=== PATIENT | male | born 1985 | race Caucasian/White ===

== ENCOUNTER 2017-07-13 09:14 | Observation (INO) | payer OTHER ==
[~2017-07-13] VITALS: Ht 182.9 cm; Wt 103.0 kg
[2017-07-13] VITALS (11 sets, daily range): BP systolic 111–137; BP diastolic 61–82; PULSE 56–90; RESP 14–20; Ht 182.9 cm; Wt 103.0 kg
[2017-07-13] MEDS ORDERED: APIX5TAB PO (10:00)
--- NOTE | 2017-07-13 10:43 | RADRPT ---
PROCEDURE: XR Chest. CLINICAL INDICATION: Preop TECHNIQUE: Single AP portable chest. COMPARISON: No prior Chest x-ray FINDINGS: The cardiomediastinal silhouette is within normal limits of size. The lungs are clear without pleur al effusion or focal consolidation. No pneumothorax. The osseous structures and soft tissues are unr emarkable. IMPRESSION: 1. No evidence for active cardiopulmonary disease. RPTAT:AAJJ Physician King Date Time Electronically viewed and signed by Physician King on 07/13/2017 10:43 [place]/
[2017-07-13] MEDS ORDERED: LIDOCAINE 1% (MPF) 30 ML INJ ONE (10:46)
[2017-07-13] MEDS ORDERED: FENTAnyl 50 MCG/ML VIAL ONE ×2 (10:56→11:03)
[2017-07-13] MEDS ORDERED: EPHEDrine SULFATE 50 MG/5 ML SYG IV PRN (11:00)
[2017-07-13] MEDS ORDERED: morphine (1 MG/ML) 10ML SYRINGE IV PRN ×3 (11:00)
[2017-07-13] MEDS ORDERED: OXYCODONE/ACETAMINOPHEN (5/325) TAB PO PRN ×2 (11:00)
[2017-07-13] MEDS ORDERED: FENTAnyl 50 MCG/ML VIAL IV PRN ×2 (11:00)
[2017-07-13] MEDS ORDERED: ONDANSETRON 4 MG INJ IV PRN ×2 (11:00→18:00)
[2017-07-13] MEDS ORDERED: MEPERIDINE 25 MG INJ IV PRN (11:00)
[2017-07-13] MEDS ORDERED: KETOROLAC 30 MG INJ IV PRN (11:00)
[2017-07-13] MEDS ORDERED: hydrALAzine 20 MG INJ IV PRN (11:00)
[2017-07-13] MEDS ORDERED: DIPHENHYDRAMINE 50 MG INJ IV PRN (11:00)
[2017-07-13] MEDS ORDERED: LABETALOL HCL 20MG INJ IV PRN (11:00)
[2017-07-13] MEDS ORDERED: LIDOCAINE 2% (SDV) 5 ML INJ ONE (11:02)
[2017-07-13] MEDS ORDERED: PROPOFOL 20 ML ONE (11:02)
[2017-07-13] MEDS ORDERED: CEFAZOLIN 1 GM INJ ONE (11:03)
--- NOTE | 2017-07-13 12:18 | OPR ---
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
[2017-07-13] MEDS: FENTAnyl 50 MCG/ML VIAL IV PRN ×2 (12:32→12:54)
[2017-07-13] MEDS ORDERED: HYDROCODONE/APAP (5/325) TAB PO PRN ×2 (13:30→18:00)
[2017-07-13] MEDS ORDERED: HYDROmorphONE 1 MG/ML SYG IV PRN (13:30)
[2017-07-13] MEDS ORDERED: IBUPROFEN 600 MG TAB PO PRN (13:30)
--- NOTE | 2017-07-13 16:11 | PN ---
Date/Time of Note Date/Time of Note DATE: 07/13/17 TIME: 16:09 Assessment/Plan VTE Prophylaxis VTE Prophylaxis Intervention: LMWH Lines/Catheters IV Catheter Type (from Nrs): Saline Lock Assessment/Plan Chief Complaint/Hosp Course 1. Thrombophlebitis RLE 2. Overweight 3. Varicose veins lower extremities Problems: Assessment/Plan 1. Start vancomycin IV 2. Keep wound wrapped 3. Pain control Subjective 24 Hr Interval Summary Constitutional: improved, no complaints Exam/Review of Systems Vital Signs Vitals Vital Signs Date Time Temp Pulse Resp B/P Pulse Ox O2 Delivery O2 Flow Rate FiO2 07/13/17 13:47 97.6 66 20 113/61 97 07/13/17 12:47 Nasal Cannula 2.0 Exam Constitutional: oriented Musculoskeletal: swelling (right leg) Medications Medications Current Medications Hydromorphone HCl (Dilaudid) 0.5 mg Q6H PRN IV PAIN LEVEL 6-10; Start 07/13/17 at 13:30 Acetaminophen/ Hydrocodone Bitart ([place] (5/325)) 1 tab Q6H PRN PO PAIN LEVEL 6 -10; Start 07/13/17 at 13:30 Ibuprofen (Motrin) 600 mg Q6H PRN PO PAIN LEVEL 1-5; Start 07/13/17 at 13:30 Enoxaparin Sodium (Lovenox) 30 mg DAILY@07 SC ; Start 07/14/17 at 07:00 ANNIKA LEWIS Jul 13, 2017 16:11
[2017-07-13] MEDS ORDERED: VANCOMYCIN 1 GM (PMX) 250 ML IVPB SCH (16:30)
[2017-07-13] MEDS ORDERED: VANCOMYCIN IV PER PHARMACY XX SCH (16:30)
[2017-07-13] MEDS ORDERED: NACL 0.9% 3 ML SYG IV SCH (18:00)
[2017-07-13] MEDS ORDERED: MAGNESIUM HYDROXIDE 30ML CUP PO PRN (18:00)
[2017-07-13] MEDS ORDERED: BISACODYL (EC) 5 MG TAB PO PRN (18:00)
[2017-07-13] MEDS ORDERED: ZOLPIDEM 5 MG TAB PO PRN (18:00)
[2017-07-13] MEDS ORDERED: ACETAMINOPHEN 325 MG TAB PO PRN (18:00)
[2017-07-13] MEDS ORDERED: DOCUSATE SODIUM 100 MG CAP PO PRN (18:00)
[2017-07-13] MEDS ORDERED: morphine 2 MG INJ IV PRN (18:00)
--- NOTE | 2017-07-13 18:04 | QN ---
Documentation Comment [id number] DACIA BLEVINS MD Jul 13, 2017 18:04
[2017-07-13 19:07] LABS: CALCIUM 8.9 mg/dl (8.4-10.2); CREATININE 0.92 mg/dl (0.61-1.24)
[2017-07-13] MEDS: SOD CHLORIDE 0.9% 1,000 ML IV SCH (19:48)
[2017-07-13] MEDS ORDERED: CEFTRIAXONE 1 GM/50 ML (PMX) 50 ML IVPB SCH (20:00)
[2017-07-13] MEDS: VANCOMYCIN 1.5 GM in SOD CHLORIDE 0.9% 250 ML IVPB SCH (22:21)
[2017-07-14 02:00] VITALS: BP 110/69; RESP 20
[2017-07-14] MEDS: VANCOMYCIN 1.5 GM in SOD CHLORIDE 0.9% 250 ML IVPB SCH ×2 (05:06→12:08)
[2017-07-14 05:52] LABS: BASOPHILS % 0.4 % (0.0-2.0); EOSINOPHILS # 0.1 10^3/ul (0.0-0.5); HEMATOCRIT 35.2 % (42.0-52.0); HEMOGLOBIN 11.4 g/dl (14.0-18.0); LYMPHOCYTES # 1.8 10^3/ul (0.8-2.9); LYMPHOCYTES % 26.1 % (15.0-51.0); MEAN CORPUSCULAR HEMOGLOBIN 28.6 pg (29.0-33.0); MEAN CORPUSCULAR HGB CONC 32.4 g/dl (32.0-37.0); MEAN CORPUSCULAR VOLUME 88.2 fl (82.0-101.0); MEAN PLATELET VOLUME 10.8 fl (7.4-10.4); MONOCYTE # 0.5 10^3/ul (0.3-0.9); MONOCYTES % 6.9 % (0.0-11.0); NEUTROPHIL # 4.4 10^3/ul (1.6-7.5); PLATELET COUNT 196 10^3/UL (140-415); RED BLOOD COUNT 3.99 10^6/ul (4.70-6.10); RED CELL DISTRIBUTION WIDTH 13.9 % (11.5-14.5); WHITE BLOOD COUNT 6.9 10^3/ul (4.8-10.8)
[2017-07-14] MEDS ORDERED: PANTOPRAZOLE 40 MG INJ IV SCH (06:00)
[2017-07-14 06:13] LABS: CALCIUM 8.4 mg/dl (8.4-10.2); CREATININE 0.94 mg/dl (0.61-1.24); POTASSIUM 4.2 mmol/L (3.5-5.1)
[2017-07-14] MEDS ORDERED: ENOXAPARIN 30 MG/0.3 ML SYG SC SCH (07:00)
[2017-07-14 07:27] VITALS: BP 113/64; RESP 18
[2017-07-14] MEDS ORDERED: ENOXAPARIN 40 MG/0.4 ML SYG SC SCH (09:00)
--- NOTE | 2017-07-14 09:00 | OPR ---
DATE OF OPERATION: PREOPERATIVE DIAGNOSIS: Thrombophlebitis right lower extremity. POSTOPERATIVE DIAGNOSIS: Thrombophlebitis right lower extremity. OPERATION PERFORMED: Phlebectomy right lower extremity. SURGEON: Holly Maya MD. ANESTHESIA: General. CONSENT: Risks, benefits, complications, alternative therapies explained to the patient and the [facility] brenda, consent obtained. OPERATIVE TECHNIQUE: The patient was taken the operating room. After induction of general anesthes ia, prepped and draped in usual sterile fashion, I made three 4 cm incisions, 2 in the lateral aspec t of the right leg and one in the anterolateral aspect of the right thigh. The varicosities appeare d to be very large, about 3 cm in diameter and thrombosed. It was very adherent to the subcutaneous tissue. It was released with Metzenbaum scissors. Most of the varicosities which were thrombosed w ere removed. The rest of the vein was decompressed by suctioning the clot out of the vein. All 3 wounds were then irrigated using antibiotic solution and closed in 2 layers of 2-0 Vicryl suture for subcutaneous, and virgil for the skin. Patient tolerated procedure well. Patient will be admitte d for IV antibiotics. Dictated By: HOLLY WHARTON/ZOILA Conf#: [id number] DID#: [id number]
[2017-07-14] MEDS: SOD CHLORIDE 0.9% 1,000 ML IV SCH (10:21)
--- NOTE | 2017-07-14 12:57 | PN ---
Date/Time of Note Date/Time of Note DATE: 07/14/17 TIME: 12:56 Assessment/Plan VTE Prophylaxis VTE Prophylaxis Intervention: other Lines/Catheters IV Catheter Type (from Nrsg): Intraosseous Central line still needed: No Urinary Cath still in place: No Assessment/Plan Chief Complaint/Hosp Course SP Phlebectomy will continue abx Problems: Subjective 24 Hr Interval Summary Cardiovascular: no complaints Gastrointestinal: no complaints Genitourinary: no complaints Musculoskeletal: no complaints Exam/Review of Systems Vital Signs Vitals Vital Signs Date Time Temp Pulse Resp B/P Pulse Ox O2 Delivery O2 Flow Rate FiO2 07/14/17 07:27 98.3 63 18 113/64 94 07/13/17 14:30 Room Air 07/13/17 12:47 2.0 Intake and Output 07/13/17 07/13/17 07/14/17 15:00 23:00 07:00 Intake Total 700 ml 420 ml 800 ml Output Total 10 ml Balance 690 ml 420 ml 800 ml Results Result Diagram: 07/14/1728 07/14/1728 Results 24 hrs Laboratory Tests Test 07/13/17 18:36 07/14/17 05:28 Sodium Level 140 141 Potassium Level 4.0 4.2 Chloride Level 107 109 Carbon Dioxide Level 31 26 Anion Gap 6 L 10 Blood Urea Nitrogen 12 11 Creatinine 0.92 0.94 Glucose Level 81 92 Calcium Level 8.9 8.4 White Blood Count 6.9 Red Blood Count 3.99 L Hemoglobin 11.4 L Hematocrit 35.2 L Mean Corpuscular Volume 88.2 Mean Corpuscular Hemoglobin 28.6 L Mean Corpuscular Hemoglobin Concent 32.4 Red Cell Distribution Width 13.9 Platelet Count 196 Mean Platelet Volume 10.8 H Neutrophils % 64.0 Lymphocytes % 26.1 Monocytes % 6.9 Eosinophils % 2.0 Basophils % 0.4 Nucleated Red Blood Cells % 0.0 Neutrophils # 4.4 Lymphocytes # 1.8 Monocytes # 0.5 Eosinophils # 0.1 Basophils # 0.0 Nucleated Red Blood Cells # 0.0 Medications Medications Current Medications Hydromorphone HCl (Dilaudid) 0.5 mg Q6H PRN IV PAIN LEVEL 6-10 Last administered on 07/14/17t 12:08; Admin Dose 0.5 MG; Start 07/13/17 at 13:30 Acetaminophen/ Hydrocodone Bitart ([place] (5/325)) 1 tab Q6H PRN PO PAIN LEVEL 6 -10 Last administered on 07/13/17 21:59; Admin Dose 1 TAB; Start 07/13/17 at 13 :30 Ibuprofen 600 mg 600 mg Q6H PRN PO PAIN LEVEL 1-5; Start 07/13/17 at 13:30 Sodium Chloride (NS) 1,000 ml @ 60 mls/hr [id number] IV Last administered on 07/13 19:48; Admin Dose 60 MLS/HR; Start 07/13/17 at 17:41 Ondansetron HCl (Zofran Inj) 4 mg Q6H PRN IV NAUSEA AND/OR VOMITING; Start 07/13/17 at 18:00 Acetaminophen (Tylenol Tab) 650 mg Q6H PRN PO PAIN LEVEL 1-3 OR FEVER; Start 07/13/17 at 18:00 Acetaminophen/ Hydrocodone Bitart ([place] (5/325)) 1 tab Q6H PRN PO MODERATE PAIN LEVEL 4-6; Start 07/13/17 at 18:00 Morphine Sulfate (morphine) 2 mg Q4H PRN IV SEVERE PAIN LEVEL 7-10; Start 07/13 at 18:00 Docusate Sodium (Colace) 100 mg Q12H PRN PO CONSTIPATION; Start 07/13/17 at 18: 00 Magnesium Hydroxide (Milk Of Mag) 30 ml DAILY PRN PO CONSTIPATION; Start at 18:00 Bisacodyl (Dulcolax) 5 mg DAILY PRN PO CONSTIPATION; Start 07/13/17 at 18:00 Zolpidem Tartrate (Ambien) 5 mg QHS PRN PO SLEEP; Start 07/13/17 at 18:00 Pantoprazole (Protonix Iv) 40 mg DAILY@06 IV Last administered on 07/14/17 05: 11; Admin Dose 40 MG; Start 07/14/17 at 06:00 Enoxaparin Sodium 40 mg 40 mg DAILY SC Last administered on 07/14/17 08:45; Admin Dose 40 MG; Start 07/14/17 at 09:00 Ceftriaxone Sodium 50 ml @ 100 mls/hr Q24H IVPB Last administered on 19:49; Admin Dose 100 MLS/HR; Start 07/13/17 at 20:00 Vancomycin HCl/ Sodium Chloride (Vancocin/NS) 250 ml @ 83.333 mls/ hr Q8H IVPB Last administered on 07/14/17t 12:08; Admin Dose 83.333 MLS/HR; Start at 21:00 Miscellaneous Information (*Rx Drug Level Order Reminder*) VANCOMYCIN TROUGH AT 2000 ONCE ONCE XX ; Start 07/14/17 at 20:00; Stop 07/14/17 at 20:01 HOLLY LEMOS MD Jul 14, 2017 12:57
[2017-07-14 14:16] VITALS: BP_SYST 131; BP_SYST 155; BP_DIAS 76; BP_DIAS 93; RESP 18
--- NOTE | 2017-07-14 14:40 | PN ---
Date/Time of Note Date/Time of Note DATE: 07/14/17 TIME: 14:36 Assessment/Plan VTE Prophylaxis VTE Prophylaxis Intervention: ambulation Lines/Catheters IV [facility] Type [facility]from [facility]): Intraosseous Central line still needed: No Urinary Cath still in place: No Assessment/Plan Chief Complaint/Hosp Course 1. Thrombophlebitis RLE S/p thrombectomy. 2. Overweight 3. Varicose veins lower extremities Problems: Assessment/Plan 1. Discharge pending Subjective 24 Hr Interval Summary Constitutional: improved, no complaints Exam/Review of Systems Vital Signs Vitals Vital Signs Date Time Temp Pulse Resp B/P Pulse Ox O2 Delivery O2 Flow Rate FiO2 07/14/17 14:16 97.9 64 18 131/76 98 07/13/17 14:30 Room Air 07/13/17 12:47 2.0 Intake and Output 07/13/17 07/13/17 07/14/17 15:00 23:00 07:00 Intake Total 700 ml 420 ml 800 ml Output Total 10 ml Balance 690 ml 420 ml 800 ml Exam Constitutional: alert, oriented Eyes: nl conjunctiva Respiratory: clear to auscultation Cardiovascular: regular rate and rhythm Musculoskeletal: swelling (left leg) Results Result Diagram: 07/14/1728 07/14/1728 Results 24 hrs Laboratory Tests Test 07/13/17 18:36 07/14/17 05:28 Sodium Level 140 141 Potassium Level 4.0 4.2 Chloride Level 107 109 Carbon Dioxide Level 31 26 Anion Gap 6 L 10 Blood Urea Nitrogen 12 11 Creatinine 0.92 0.94 Glucose Level 81 92 Calcium Level 8.9 8.4 White Blood Count 6.9 Red Blood Count 3.99 L Hemoglobin 11.4 L Hematocrit 35.2 L Mean Corpuscular Volume 88.2 Mean Corpuscular Hemoglobin 28.6 L Mean Corpuscular Hemoglobin Concent 32.4 Red Cell Distribution Width 13.9 Platelet Count 196 Mean Platelet Volume 10.8 H Neutrophils % 64.0 Lymphocytes % 26.1 Monocytes % 6.9 Eosinophils % 2.0 Basophils % 0.4 Nucleated Red Blood Cells % 0.0 Neutrophils # 4.4 Lymphocytes # 1.8 Monocytes # 0.5 Eosinophils # 0.1 Basophils # 0.0 Nucleated Red Blood Cells # 0.0 Medications Medications Current Medications Hydromorphone HCl (Dilaudid) 0.5 mg Q6H PRN IV PAIN LEVEL 6-10 Last administered on 07/14/17 12:08; Admin Dose 0.5 MG; Start 07/13/17 at 13:30 Acetaminophen/ Hydrocodone Bitart ([place] (5/325)) 1 tab Q6H PRN PO PAIN LEVEL 6 -10 Last administered on 07/13/17 21:59; Admin Dose 1 TAB; Start 07/13/17 at 13 :30 Ibuprofen 600 mg 600 mg Q6H PRN PO PAIN LEVEL 1-5; Start 07/13/17 at 13:30 Sodium Chloride (NS) 1,000 ml @ 60 mls/hr [id number] IV Last administered on 07/13 19:48; Admin Dose 60 MLS/HR; Start 07/13/17 at 17:41 Ondansetron HCl (Zofran Inj) 4 mg Q6H PRN IV NAUSEA AND/OR VOMITING; Start 07/13/17 at 18:00 Acetaminophen (Tylenol Tab) 650 mg Q6H PRN PO PAIN LEVEL 1-3 OR FEVER; Start 07/13/17 at 18:00 Acetaminophen/ Hydrocodone Bitart ([place] (5/325)) 1 tab Q6H PRN PO MODERATE PAIN LEVEL 4-6; Start 07/13/17 at 18:00 Morphine Sulfate (morphine) 2 mg Q4H PRN IV SEVERE PAIN LEVEL 7-10; Start 07/13 at 18:00 Docusate Sodium (Colace) 100 mg Q12H PRN PO CONSTIPATION; Start 07/13/17 at 18: 00 Magnesium Hydroxide (Milk Of Mag) 30 ml DAILY PRN PO CONSTIPATION; Start at 18:00 Bisacodyl (Dulcolax) 5 mg DAILY PRN PO CONSTIPATION; Start 07/13/17 at 18:00 Zolpidem Tartrate (Ambien) 5 mg QHS PRN PO SLEEP; Start 07/13/17 at 18:00 Pantoprazole (Protonix Iv) 40 mg DAILY@06 IV Last administered on 07/14/17 05: 11; Admin Dose 40 MG; Start 07/14/17 at 06:00 Enoxaparin Sodium 40 mg 40 mg DAILY SC Last administered on 07/14/17 08:45; Admin Dose 40 MG; Start 07/14/17 at 09:00 Ceftriaxone Sodium 50 ml @ 100 mls/hr Q24H IVPB Last administered on 19:49; Admin Dose 100 MLS/HR; Start 07/13/17 at 20:00 Vancomycin HCl/ Sodium Chloride (Vancocin/NS) 250 ml @ 83.333 mls/ hr Q8H IVPB Last administered on 07/14/17 12:08; Admin Dose 83.333 MLS/HR; Start at 21:00 Miscellaneous Information (*Rx Drug Level Order Reminder*) VANCOMYCIN TROUGH AT 1999 ONCE ONCE XX ; Start 07/14/17 at 20:00; Stop 07/14/17 at 20:01 ANNIKA LEWIS Jul 14, 2017 14:40
--- NOTE | 2017-07-14 15:00 | PDOCDIS ---
Discharge Instructions DIAGNOSIS Discharge Diagnosis Thrombectomy right vena saphena CONDITION Patient Condition: Good HOME CARE INSTRUCTIONS: Diet Instructions: RegularSpecial Diet: REGULAR DIET ACTIVITY: Activity Restrictions: Slowly Increase Activity Bathing Restrictions: Sponge Bath FOLLOW UP/APPOINTMENTS Follow-up Plan Dr Maya 1 week SCHOOL/WORK RELEASE May return to School/Work with: With Restrictions (1 week off) ANNIKA LEWIS Jul 14, 2017 15:00
[2017-07-14] MEDS ORDERED: CEPH500C PO (15:01)
[2017-07-14] MEDS ORDERED: IBUP-1542 PO (15:01)
[2017-07-14] MEDS ORDERED: HYDR-3498 PO (15:11)
--- NOTE | 2017-07-15 18:12 | HP ---
DATE OF ADMISSION: 07/13/2017 HISTORY OF PRESENT ILLNESS: The patient is a 32-year-old male who has a history of varicose veins. The patient has a history of pilonidal abscess status post I and D in the past. Now, patient prese nted with right lower extremity saphenous vein surgery due to thrombophlebitis. The patient has his tory of leg infections in the past. PAST MEDICAL HISTORY: Negative. ALLERGY HISTORY: NEGATIVE. FAMILY HISTORY: Noncontributory. SOCIAL HISTORY: Negative. MEDICATIONS AT HOME: Apixaban. REVIEW OF SYSTEMS: HEENT: Unremarkable. RESPIRATORY: Unremarkable. CARDIOVASCULAR: Unremarkable. ABDOMEN: Unremarkable. EXTREMITIES: Leg pain. CENTRAL NERVOUS SYSTEM: Unremarkable. PHYSICAL EXAMINATION: GENERAL: The patient is awake, alert. VITAL SIGNS: Pulse 66, blood pressure 137/79. HEAD: Atraumatic, normocephalic. Pupils equal, reactive to light. NECK: Supple. No JVD. LUNGS: Clear. CARDIOVASCULAR: S1, S2 normal. ABDOMEN: Soft and nontender. Bowel sounds positive. No palpable mass. EXTREMITIES: Right leg dressing noted. LABORATORY DATA: Not available. IMPRESSION: 1. Right leg various veins, status post surgery. 2. Thrombophlebitis. 3. History of right leg infection. PLAN: Continue IV fluids, empiric antibiotics and DVT prophylaxis. Pain medication orders were don e. Dictated By: DACIA TIERNEY/ZOILA Conf#: [id number] DID#: [id number]
--- NOTE | 2017-07-17 07:51 | DS ---
Date/Time of Note Date/Time of Note DATE: 07/17/17 TIME: 07:39 Discharge Summary Admission/Discharge Info Admit Date/Time Jul 13, 2017 at 13:00 Discharge Date/Time Jul 14, 2017 at 15:40 Discharge Diagnosis 1. Right leg various veins, status post surgery. 2. Thrombophlebitis. 3. History of right leg infection. 4. Overweight Patient Condition: Stable Consults DR Maya Procedures Thrombectomy right vena saphena Hospital Course The patient is a 32-year-old male who has a history of varicose veins. The patient has a history of pilonidal abscess status post I and D in the past. Now , patient presented with right lower extremity saphenous vein surgery by dr Maya due to thrombophlebitis. The patient has history of leg infections in the past. The surgery was performed on 07/13/2017 and was successful. Postoperative period is unremarkable. Pt was continue with IV and antibiotic therapy, was tolerating jelena well, pain was controlled. REVIEW OF SYSTEMS: HEENT: Unremarkable. RESPIRATORY: Unremarkable. CARDIOVASCULAR: Unremarkable. ABDOMEN: Unremarkable. EXTREMITIES: Leg pain. CENTRAL NERVOUS SYSTEM: Unremarkable. PHYSICAL EXAMINATION: GENERAL: The patient is awake, alert. VITAL SIGNS: Pulse 66, blood pressure 137/79. HEAD: Atraumatic, normocephalic. Pupils equal, reactive to light. NECK: Supple. No JVD. LUNGS: Clear. CARDIOVASCULAR: S1, S2 normal. ABDOMEN: Soft and nontender. Bowel sounds positive. No palpable mass. EXTREMITIES: Right leg dressing noted. IMPRESSION: In stable condition with antibiotics and pain medication, with anticoagulants pt was discharged home. He was instructed to see dr Maya in one week Home Meds Active Scripts Hydrocodone Bit-Acetaminophen (Hydrocodone Bit-APAP) 5-325MG Tablet, 1 TAB PO Q6H Y for MODERATE PAIN LEVEL 4-6, #24 TAB Prov:ANNIKA LEWIS 07/14/17 Cephalexin* (Cephalexin*) 500 Mg Capsule, 500 MG PO Q8, #21 CAP Prov:ANNIKA LEWIS 07/14/17 Ibuprofen* (Ibuprofen*) 600 Mg Tablet, 600 MG PO Q6H Y for PAIN LEVEL 1-5 for 10 Days, TAB Prov:ANNIKA LEWIS 07/14/17 Reported Medications Apixaban* (Eliquis*) 5 Mg Tablet, 5 MG PO BID, TAB 07/13/17 Discontinued Reported Medications [None] No Conflict Check 01/19/12 Follow-up Plan Dr Maya 1 week Primary Care Provider Blayne Redman Time spent on discharge: < 30 minutes Pending Labs Laboratory Tests Test 07/16/17 09:03 Lab Scanned Report REFERENCE [id number] ANNIKA LEWIS Jul 17, 2017 07:49
--- NOTE | 2017-07-19 13:30 | RADRPT ---
Vent Rate: 68 bpm RR Interval: 0 msec IA Interval: 196 msec QRS Duration: 82 msec QT Interval: 402 msec QTC Interval: 427 msec P-R-T [place]: 62 - 47 - 54 degrees Normal sinus rhythm with sinus arrhythmia Normal ECG Electronically Signed By: Johnathon Weinberg [id number]
== END 2017-07-14 15:40 | disposition home or self-care (01) ==
LOC: SDS 09:14 → REC 13:00 → MS2 13:30
PROVIDERS: ADMIT Internal Medicine Nephrology; ATTEND Thoracic Surgery (Cardiothoracic Vascular Surgery)
DX: I80.01 Phlebitis and thrombophlebitis of superficial vessels of right lower extremity (principal); E66.3 Overweight; Z68.30 Body mass index [BMI] 30.0-30.9, adult
CPT/HCPCS: 37722; 71010; 80048; 85025; 87070; 87075; 88304; 93005; C9113; J0690; J0696; J1170; J1650; J1885; J2175; J2270; J2405; J3010; J3370; J7030; J7050; Z7500; Z7512; Z7610; G0378